=== PATIENT | female | born 1985 | race Caucasian/White ===

== ENCOUNTER 2020-08-22 13:13 | Emergency (ER) | payer MEDICAID ==
[~2020-08-22] VITALS: Ht 154.9 cm; Wt 61.4 kg
[2020-08-22 13:20] VITALS: BP 117/91
[2020-08-22 14:43] LABS: INFLUENZA TYPE A NEGATIVE FOR TYPE A (NEGATIVE); INFLUENZA TYPE B NEGATIVE FOR TYPE B (NEGATIVE)
== END 2020-08-22 15:04 | disposition home or self-care (01) ==
LOC: EMS 13:24
DX: J06.9 Acute upper respiratory infection, unspecified (principal); Z20.822 Contact with and (suspected) exposure to COVID-19
CPT/HCPCS: 87804; 99283; U0003

== ENCOUNTER 2021-02-06 21:16 | Emergency (ER) | payer MEDICAID ==
[~2021-02-06] VITALS: Ht 152.4 cm; Wt 59.1 kg
[2021-02-06] MEDS ORDERED: IBUPROFEN 600 MG TABLET PO ONE (22:15)
[2021-02-06] MEDS ORDERED: ACETAMINOPHEN 500 MG TABLET PO ONE (22:15)
[2021-02-06 22:30] VITALS: BP 127/75
[2021-02-06 22:56] LABS: COVID AG,FIA SOURCE NASOPHARYNGEAL
[2021-02-07 00:06] LABS: INFLUENZA TYPE A NEGATIVE FOR TYPE A (NEGATIVE); INFLUENZA TYPE B NEGATIVE FOR TYPE B (NEGATIVE)
== END 2021-02-06 23:20 | disposition home or self-care (01) ==
LOC: EMS 21:29
DX: B34.9 Viral infection, unspecified (principal); I10 Essential (primary) hypertension; Z20.822 Contact with and (suspected) exposure to COVID-19
CPT/HCPCS: 87426; 87804; 99283; U0003